=== PATIENT | male | born 1955 | race Caucasian/White ===

== ENCOUNTER → 2016-12-03 | Outpatient (CLI) | payer MEDICAID ==
[~2016-12-03] MED LIST: HCTZ PO; HYDROCHLOROTHIAZIDE PO; LOPRESSOR PO; PATIENT'S PHARMACY; VICODIN PO
--- NOTE | ~2016-12-03 | MR17 ---
[facility] A Service of [facility] RADIOLOGY TEXT RESULTS PATIENT: SOHAIL SMITH LOCATION: [facility] : 55 UNIT #: [id number] AGE: [address]: Beto Stephens MD SEX: M ORDER DR: [id number] [facility] [address] [place], [place] [address] [id number] O MR#: [id number] Acc #: [id number] NAME: SOHAIL SMITH. : 1955 SEX: M STUDY DATE/TIME: 12/03/2016 9:38 UNIT: [facility] ROOM: STUDY DESCRIPTION: MR Brain WWo Contrast Attending Physician: Beto Stephens M.D. Ordering Physician: Beto Stephens M.D. Primary Care Physician: Beto Stephens M.D. MRI CENTER REPORT This report is preliminary unless electronic signature is present. EXAM Brain MR with and without contrast, 12/03/2016. PROCEDURE Brain MR with and without contrast, using seizure protocol imaging. COMPARISON Head CT dated 10/23/2016. CLINICAL HISTORY Chronic seizure disorder. Hearing loss for 6-7 years. Recent abnormal head CT in September 2016. Memory loss. FINDINGS There is no MR-evidence of acute ischemia or other restricted diffusion. There is a small area of hemosiderin staining in the right parietal region with an associated small area of nearby encephalomalacia. There are moderate nonspecific subcortical white matter changes as well, fairly symmetric. Normal flow voids are seen within the cerebral vessels. The hippocampal formations are symmetric in size and signal. Post-contrast images show no mass or abnormal enhancement. Brain parenchymal signal is, otherwise, unremarkable, and the brain is structurally normal. IMPRESSION Small area of hemosiderin staining in the right parietal region, corresponding to the faint hyperdensity seen on CT and there is a nearby area of encephalomalacia. There is no enhancement. This could represent a tiny cavernoma or calcification from any prior insult. No acute abnormality is seen. No other lesions are seen. No mass or abnormal enhancement or other acute finding. [facility] A Service of [facility] RADIOLOGY TEXT RESULTS PATIENT: SOHAIL SMITH [facility] UNIT #: [id number] AGE: [address]: Beto Stephens MD SEX: M ORDER DR: Dictated by... Sohail Almonte M.D. THIS IS AN ELECTRONICALLY VERIFIED REPORT Sohail Almonte M.D. at 12/16/2016 3:28 PM TEV/jt TD: 12/11/2016 17:41 JOB #: [id number] MRI CENTER REPORT Page 1 of 1 COPY
[2016-12-03 15:21] LABS: POC - CREATININE 0.86 mg/dL (0.64-1.27); POC - GFR >60.0 mL/min (>60)
== END | disposition home or self-care (01) ==
LOC: CMRI 07:55
PROVIDERS: Internal Medicine
DX: R93.0 Abnormal findings on diagnostic imaging of skull and head, not elsewhere classified (principal)
CPT/HCPCS: 70553; 82565; A9577